=== PATIENT | female | born 1990 | race Caucasian/White ===

== ENCOUNTER 2020-11-06 07:06 | Inpatient (IN) | payer OTHER ==
[~2020-11-06 07:06] MED LIST: Acetaminophen 500 MG Tab PO ONE; Scopolamine 1.5 MG Transdermal Patch TRDERM SCH; cefOXitin 2 GM Vial ONE
[2020-11-06] MEDS ORDERED: Dextrose 5%-Lactated Ringers 1,000 ML IV SCH ×2 (07:30→14:45)
[2020-11-06] MEDS ORDERED: Albuterol/Ipratropium 3.0-0.5 MG/3 ML Neb Soln NEB ONE (08:00)
[2020-11-06] MEDS ORDERED: Dexamethasone 4 MG/ML SDV ONE (08:20)
[2020-11-06] MEDS ORDERED: Propofol 200 MG/20 ML SDV ONE (08:20)
[2020-11-06] MEDS ORDERED: Rocuronium 50 MG/5 ML Vial ONE (08:20)
[2020-11-06] MEDS ORDERED: Neostigmine Methylsulfate 1 MG/ML 5 ML Syringe ONE (08:20)
[2020-11-06] MEDS ORDERED: Ondansetron 4 MG/2 ML SDV ONE (08:20)
[2020-11-06] MEDS ORDERED: Glycopyrrolate 0.2 MG/ML 5 ML MDV ONE (08:20)
[2020-11-06] MEDS ORDERED: Succinylcholine 200 MG/10 ML MDV ONE (08:20)
[2020-11-06] MEDS ORDERED: fentaNYL 250 MCG/5 ML SDV ONE ×2 (08:22→11:33)
[2020-11-06] MEDS ORDERED: Levofloxacin/Dextrose 5%-Water 500 MG in Premix Bag 1 BAG IV ONE (08:45)
[2020-11-06] MEDS ORDERED: Magnesium Sulfate 4.2 GM in Sodium Chloride 0.9% 250 ML IV ONE (09:00)
[2020-11-06] MEDS ORDERED: Ketamine 500 MG/5 ML MDV IV SCH (09:00)
[2020-11-06] MEDS ORDERED: Ketamine 50 MG in Sodium Chloride 0.9% 49.5 ML IV SCH (09:00)
[2020-11-06] MEDS ORDERED: Levofloxacin 500 MG/20 ML SDV ONE (10:35)
[2020-11-06] MEDS ORDERED: hydrOXYzine HCL 100 MG/2 ML SDV IM ONE (13:32)
[2020-11-06] MEDS ORDERED: Ondansetron 4 MG/2 ML SDV IVPUSH ONE (13:39)
[2020-11-06] MEDS ORDERED: LORazepam 2 MG/ML SDV ONE (14:27)
[2020-11-06] MEDS: LORazepam 2 MG/ML SDV IVPUSH PRN ×2 (14:29→20:19)
[2020-11-06] MEDS: HYDROmorphone 0.5 MG/0.5 ML Syringe IVPUSH PRN (14:45)
[2020-11-06] MEDS: Lactated Ringers 1,000 ML IV SCH ×2 (14:53→22:59)
[2020-11-06] MEDS ORDERED: Acetaminophen 500 MG Tab PO PRN (15:00)
[2020-11-06] MEDS ORDERED: Albuterol/Ipratropium 3.0-0.5 MG/3 ML Neb Soln INH PRN (15:00)
[2020-11-06] MEDS ORDERED: HYDROmorphone 1 MG/ML Syringe IV PRN (15:00)
[2020-11-06] MEDS ORDERED: Labetalol 20 MG/4 ML Syringe IVPUSH PRN (15:00)
[2020-11-06] MEDS ORDERED: Acetaminophen 500 MG Tab PO SCH (15:00)
[2020-11-06] MEDS ORDERED: Calcium Gluconate 10% 1 GM/10 ML SDV IVPUSH PRN (15:00)
[2020-11-06] MEDS ORDERED: Ondansetron 4 MG/2 ML SDV IVPUSH PRN (15:00)
[2020-11-06] MEDS ORDERED: diphenhydrAMINE 50 MG/ML SDV IVPUSH PRN (15:00)
[2020-11-06] MEDS: Metoclopramide 10 MG/2 ML SDV IVPUSH PRN (15:32)
[2020-11-06] MEDS ORDERED: MVI, Adult with Vitamin K 10 ML, Thiamine 200 MG, Zinc/Copper/Manganese/Selenium 1 ML i... IV SCH ×8 (16:00)
[2020-11-06] MEDS ORDERED: Pantoprazole 40 MG Vial IVPUSH SCH (16:00)
[2020-11-06] MEDS: Albuterol/Ipratropium 3.0-0.5 MG/3 ML Neb Soln INH SCH ×2 (16:05→20:04)
[2020-11-06] MEDS: Acetaminophen 500 MG Tab PO SCH ×2 (16:05→23:05)
[2020-11-06] MEDS: hydrOXYzine HCL 100 MG/2 ML SDV IM PRN (16:07)
[2020-11-06] MEDS: oxyCODONE 5 MG Tab PO PRN (17:32)
[2020-11-06] MEDS: Cyclobenzaprine 10 MG Tab PO PRN (19:57)
[2020-11-06] MEDS: Heparin Sodium 5,000 Units/ML Vial SUBCUT SCH (19:59)
[2020-11-07] MEDS: HYDROmorphone 0.5 MG/0.5 ML Syringe IVPUSH PRN ×3 (01:51→09:04)
[2020-11-07] MEDS: oxyCODONE 5 MG Tab PO PRN (01:53)
[2020-11-07] MEDS: Cyclobenzaprine 10 MG Tab PO PRN (05:46)
[2020-11-07] MEDS: Albuterol/Ipratropium 3.0-0.5 MG/3 ML Neb Soln INH SCH ×4 (07:06→21:02)
[2020-11-07] MEDS ORDERED: Lactated Ringers 1,000 ML IV SCH (07:43)
[2020-11-07] MEDS ORDERED: diphenhydrAMINE 50 MG/ML SDV IVPUSH ONE (08:00)
[2020-11-07] MEDS ORDERED: Famotidine 20 MG/2 ML SDV IV ONE (08:00)
[2020-11-07] MEDS ORDERED: methylPREDNISolone Sodium Succinate 40 MG/1 ML SDV IVPUSH ONE (09:00)
[2020-11-07] MEDS ORDERED: Celecoxib 200 MG Cap PO SCH (09:00)
[2020-11-07] MEDS: Metoclopramide 10 MG/2 ML SDV IVPUSH PRN (09:09)
[2020-11-07] MEDS: hydrOXYzine HCl 25 MG Tab PO PRN (09:12)
[2020-11-07] MEDS: Heparin Sodium 5,000 Units/ML Vial SUBCUT SCH ×2 (09:12→20:54)
[2020-11-07] MEDS: Acetaminophen Soln 650 MG/20.3 ML UD Cup PO SCH ×3 (09:12→23:43)
[2020-11-07] MEDS: SCOPOLAMINE PATCH CHECK TOP SCH (09:13)
[2020-11-07] MEDS ORDERED: Levofloxacin/Dextrose 5%-Water 500 MG in Premix Bag 1 BAG IV SCH (10:00)
[2020-11-07] MEDS: traMADol 50 MG Tab PO PRN ×2 (13:49→19:44)
[2020-11-07] MEDS: Ondansetron 4 MG Tab.DIS PO PRN (13:49)
[2020-11-07] MEDS: LORazepam 2 MG/ML SDV IVPUSH PRN (15:51)
[2020-11-07] MEDS ORDERED: MVI, Adult with Vitamin K 10 ML, Thiamine 200 MG, Zinc/Copper/Manganese/Selenium 1 ML i... IV SCH ×4 (16:00)
[2020-11-07] MEDS ORDERED: Pantoprazole 40 MG Delayed-Release Granules 1 Packet PO SCH (16:30)
[2020-11-07] MEDS ORDERED: LORazepam 0.5 MG Tab PO PRN (18:20)
[2020-11-07] MEDS: hydrOXYzine HCL 100 MG/2 ML SDV IM PRN (20:59)
[2020-11-08] MEDS: oxyCODONE 5 MG Tab PO PRN ×2 (02:20→08:23)
[2020-11-08] MEDS: traMADol 50 MG Tab PO PRN (04:49)
[2020-11-08] MEDS: Ondansetron 4 MG Tab.DIS PO PRN (04:49)
[2020-11-08] MEDS: hydrOXYzine HCl 25 MG Tab PO PRN (05:26)
[2020-11-08] MEDS: Albuterol/Ipratropium 3.0-0.5 MG/3 ML Neb Soln INH SCH (07:51)
[2020-11-08] MEDS: Acetaminophen Soln 650 MG/20.3 ML UD Cup PO SCH (08:23)
[2020-11-08] MEDS: Heparin Sodium 5,000 Units/ML Vial SUBCUT SCH (08:23)
[2020-11-08] MEDS: SCOPOLAMINE PATCH CHECK TOP SCH (08:37)
[2020-11-08] MEDS ORDERED: Magnesium Hydroxide 400 MG/5 ML Susp 30 ML Cup PO ONE (09:00)
[2020-11-08] MEDS ORDERED: Cyanocobalamin (Vitamin B12) 1,000 MCG/ML SDV IM ONE (09:00)
--- NOTE | 2020-11-09 01:36 | PN ---
DATE OF SERVICE: 11/07/2020 SUBJECTIVE: Ana Rosa is postop day #1 following a sleeve gastrectomy. She has had 540 mL in, output is 2650. ESPERANZA drain put out 75 mL of a serosanguineous drainage. Blood sugars ranged between 130 to 160. She did not have an upper GI due to allergy to the contrast. Has no questions or concerns. OBJECTIVE: GENERAL: Ana Rosa George is a pleasant 30-year-old female. She is alert and orientated. VITAL SIGNS: TPR is 98.2, 102, 16, blood pressure is 120/67. HEENT: Negative. NECK: Supple. HEART: Regular rate and rhythm. LUNGS: Clear. ABDOMEN: Dressings dry and intact. Abdominal binder is on. EXTREMITIES: Without peripheral edema. ASSESSMENT: Diagnostic laparoscopy with: 1. Laparoscopic sleeve gastrectomy. 2. Liver biopsy. 3. Repair of diaphragmatic hernia. 4. Excision of mediastinal lipoma. POSTOPERATIVE DIAGNOSES: 1. Morbid obesity. 2. Hepatomegaly. 3. Diaphragmatic hernia. 4. Mediastinal lipoma. 5. Date of procedure: 11/06/2020. Surgeon: Jun Avilez MD. PLAN: 1. Change Tylenol to liquid. 2. Discontinue D5 LR. 3. Lactated Ringer's 50 mL per hour. 4. Discontinue Celebrex. 5. Communication order: 3 med cups per hour, 1 every 20 minutes, record at bedside. 6. Bariatric step 2 gastric bypass diet without cereal. 7. Atarax 50 mg q.4 hours p.r.n. pain. 8. Dressing off, may shower. 9. Ambulate 6 times daily short distance in bey. 10.Continue use of incentive spirometer. 11.We will evaluate p.r.n. or in a.m. Luz Maria Cuevas PA-C /[id number]
--- NOTE | 2020-11-09 01:38 | DISCH ---
ADMISSION DIAGNOSES: 1. Morbid obesity. 2. Diabetes type 1. 3. Hyperlipidemia. 4. Insulin pump in place. 5. Female infertility. 6. Chronic midline thoracic back pain. 7. Maladaptive health behaviors affecting medical condition. DISCHARGE DIAGNOSES: Diagnostic laparoscopy with: 1. Laparoscopic sleeve gastrectomy. 2. Liver biopsy. 3. Repair of diaphragmatic hernia. 4. Excision of mediastinal lipoma. POSTOPERATIVE DIAGNOSES: 1. Morbid obesity. 2. Hepatomegaly. 3. Diaphragmatic hernia. 4. Mediastinal lipoma. 5. Date of procedure: 11/06/2020. Surgeon: Jun Avilez MD. HISTORY: Ana Rosa George is a 30-year-old female with morbid obesity and increasing comorbidities. After preoperative evaluation and discussion of possible risks and possible complications, she wished to proceed with surgical procedure. HOSPITAL COURSE: Ana Rosa had her surgery on 11/06/2020. She had no operative complications. On postoperative day #1, she was started on step 2 gastric bypass diet with no cereal. She tolerated it well. She also was crossover allergic reaction to Celebrex due to adverse reaction from Bactrim. Pain was managed then with oxycodone, Atarax. Her activity was good. Her oral intake was 1275. Urine output 2100. IV did become infiltrated postop evening #1 and was discontinued, and we managed her blood sugars via her Dexcom monitor and they ranged from 99 to 127. She had 1 episode of nausea on morning at discharge, which resolved after sublingual Zofran. Ana Rosa's vital signs were stable. Activity good. She received adequate dietary instructions. Vital signs remained stable, and she was able to be discharged to home on postoperative day #2. PHYSICAL EXAMINATION: GENERAL: Ana Rosa George is a 30-year-old female. VITAL SIGNS: Height is 5 feet 8 inches, weight is 299 pounds 3.2 ounces, BMI is 45.5. TPR is 96.3, 87, 16, blood pressure 113/67. HEENT: Negative. NECK: Supple. HEART: Regular rate and rhythm. LUNGS: Clear. ABDOMEN: Incisions look good. Sutures intact. ESPERANZA drain will be removed prior to discharge. Abdominal binder, she has been wearing it on and off. Feels like it is not comfortable for her. EXTREMITIES: Without peripheral edema. DISPOSITION: Discharged to home. CONDITION: Stable and improving. FOLLOWUP APPOINTMENT: With Luz Maria Cuevas PA-C, at [facility] on 11/15/2020 at 9:45 a.m. HOME MEDICATIONS: 1. Oxycodone 5 mg p.o. q.6 hours p.r.n. pain, #12. 2. Zofran ODT 4 mg p.o. q.4 hours p.r.n. nausea, #30. 3. Milk of magnesia 30 mL take 1 daily 2 were sent home with the patient p.r.n. constipation. 4. Tylenol 1000 mg p.o. q.6 to 8 hours p.r.n. pain. 5. To resume her home medication: a. Zanaflex/tizanidine 4 mg q.8 hours. b. Insulin pump to adjust as needed. c. Albuterol inhaler 2 puffs inhalation p.r.n. q.4 hours. DIET: Step 2 with no cereal. Gastric bypass diet for 1 month until 12/07/2020. To drink 8 to 10 glasses of water. ACTIVITY: No lifting greater than 10 pounds for 2 weeks. OTHER ACTIVITY: Walk 6 times inside your home unless you have someone to walk with you. Driving: Do not drive for 1 week or while on oxycodone. DISCHARGE INSTRUCTIONS: May shower. Keep operative site clean and dry. Wear abdominal binder as tolerated for 2 weeks. Notify provider if any fever, increased pain, swelling, redness, drainage, nausea, or vomiting. SPECIAL INSTRUCTIONS: 1. Use incentive spirometer 10 times every hour while awake for 1 week. 2. Walk 3 minutes for every 1 hour riding in a car for 1 month. 3. Keep a record of blood sugars, protein and fluid intake and bring to clinic appointments. 4. Watch blood sugars closely and adjust insulin pump accordingly. /[id number]
--- NOTE | 2020-11-19 14:46 | OR ---
DATE OF PROCEDURE: 11/06/2020 SURGEON: Jun Avilez MD PREOPERATIVE DIAGNOSIS: Morbid obesity. POSTOPERATIVE DIAGNOSES: 1. Morbid obesity. 2. Marked hepatomegaly. 3. Paraesophageal diaphragmatic hernia. 4. Mediastinal lipoma. OPERATIVE PROCEDURES: Diagnostic laparoscopy with: 1. Laparoscopic sleeve gastrectomy (92906). 2. Barrera-Cut needle liver biopsy (91127). 3. Repair of paraesophageal diaphragmatic hernia (81084). 4. Excision of mediastinal lipoma (35735). ANESTHESIA: General. [employer] SORTER LOAD AND UNLOAD: Luz Maria Cuevas PA-C. INDICATIONS FOR PROCEDURE: This is a 30-year-old female, presenting with longstanding morbid obesity, increasingly significant comorbidities. After preoperative evaluation and discussion, she wished to proceed with a sleeve gastrectomy. Potential risks of the procedure including bleeding, infection, leaks from the gastric staple line, as well as possibility of cardiopulmonary, septic, or hemorrhagic complications leading to were discussed, and the patient wishes to proceed. DETAILS OF PROCEDURE: The patient was taken to the operative room and placed in a supine position. After general endotracheal anesthesia was induced, she was converted to a lithotomy position and the abdomen was prepped and draped. 15 cm inferior and 5 cm left of the xiphoid process, a transverse incision was made and the peritoneal cavity entered under direct vision with an Optiview trocar. Bilateral transversus abdominis plane blocks were then placed and 5 additional trocars were placed across the upper and mid abdomen. The patient was noted to have marked hepatomegaly with liver volume being roughly 2 to 3 times normal and grossly fatty infiltrated. Barrera-Cut needle biopsies were obtained from left lobe of the liver. Minimal bleeding from biopsy sites was controlled with electrocautery. The liver was then retracted anteriorly. The patient was noted to have moderate-sized paraesophageal diaphragmatic hernia containing some perigastric fat and gastric fundus and omentum. The hernia was reduced at this point and the peritoneum overlying incised and reflected downward. During the course of the dissection, a mediastinal lipoma was encountered and this was excised and sent for separate specimen. Anterior repair of the diaphragmatic hernia was accomplished with a series of 0 Ethibond sutures reinforced with PTFE pledgets. At this point, the greater omentum was divided away from the stomach along the mid-greater curvature. Using Harmonic Scalpel, this was initially continued proximally to include the short gastric as well as highest posterior short gastric vessels. The fundus was then dissected away and the left elsy of the diaphragm area was well skeletonized. The dissection and division of the omentum was then continued down 0.2 cm proximal to the pylorus. The initial staple line beginning 2 cm proximal to the pylorus, extending underneath the incisura angularis with enough space to avoid over tightening of that area was then marked out with electrocautery and the first 3 firings of the MAX mp using reinforced black loads were then placed. A 32-Hungarian gastric tube was then placed orally per Anesthesia and positioned along the lesser curvature of the stomach and suction applied. Remainder of the gastrectomy was then accomplished with a series of reinforced black and purple loads and the specimen sent off to the side. The staple line appeared to be intact and was reinforced with fibrin sealant, and omentum was then tacked across the area of the esophagogastric junction with an additional 3-0 Vicryl stitch. Leak test was accomplished with injection of air into the gastric sleeve until it was tightly distended, and while this was submerged in antibiotic containing saline solution, no leaks or bleeding were noted. The gastric tube was then removed. A single Kris-Adamson drain was then placed through the left lateral trocar site and positioned adjacent to the esophagogastric junction and from there up into the splenic fossa. Trocars were removed and incision was closed with 4-0 Vicryl skin stitch and drain affixed with 4-0 Vicryl stitch as well. The patient was taken to the recovery room in satisfactory condition. Physician assistant account manager, Luz Maria Cuevas, played an essential role in care of this patient, helping to position the patient, retract structures as needed, as well as suturing and cutting sutures when indicated. Her presence improved patient safety and decreased operative time. Jun Avilez MD /[id number]
== END 2020-11-08 09:50 | disposition home or self-care (01) | DRG 621 ==
LOC: JP.SDSSCHI 07:06 → JP.SDS 07:06 → EDSTATUS 12:15 → JP.MS 13:15
PROVIDERS: ADMIT Surgery; ATTEND Surgery
PROC: 0DB64Z3 Excision of Stomach, Percutaneous Endoscopic Approach, Vertical (ICD-10-PCS; principal; 2020-11-06)
PROC: 0FB24ZX Excision of Left Lobe Liver, Percutaneous Endoscopic Approach, Diagnostic (ICD-10-PCS; 2020-11-06)
PROC: 0BQT4ZZ Repair Diaphragm, Percutaneous Endoscopic Approach (ICD-10-PCS; 2020-11-06)
PROC: 0JB63ZZ Excision of Chest Subcutaneous Tissue and Fascia, Percutaneous Approach (ICD-10-PCS; 2020-11-06)
DX: E66.01 Morbid (severe) obesity due to excess calories (principal); R16.0 Hepatomegaly, not elsewhere classified; D17.1 Benign lipomatous neoplasm of skin and subcutaneous tissue of trunk; E10.9 Type 1 diabetes mellitus without complications; N97.9 Female infertility, unspecified; M54.6 Pain in thoracic spine; G89.29 Other chronic pain; E78.5 Hyperlipidemia, unspecified; Z68.42 Body mass index [BMI] 45.0-49.9, adult; Z79.51 Long term (current) use of inhaled steroids; Z79.899 Other long term (current) drug therapy; Z88.1 Allergy status to other antibiotic agents; Z91.013 Allergy to seafood; Z88.8 Allergy status to other drugs, medicaments and biological substances; Z90.49 Acquired absence of other specified parts of digestive tract
CPT/HCPCS: 36415; 81025; 86850; 86900; 86901; 88304; 88307; 88313; 94640; 94762; A9270-GY; C9113; J0171; J0330; J0694; J1100; J1170; J1644; J1956; J2060; J2405; J2704; J2710; J2765; J2795; J3010; J3410; J3411; J3420; J3475; J3490; J7050; J7120; J7121; J7620-GY